=== PATIENT | female | born 1960 ===

== ENCOUNTER 2018-06-05 13:04 | Inpatient (IN) | payer BC ==
[2018-06-05] MEDS ORDERED: Albuterol/Ipratropium NEB.SOL* Albuterol 2.5 MG/Ipratropium 0.5 MG 3 ML INH PRN (17:51)
[2018-06-05] MEDS ORDERED: Senna TAB PO PRN (17:51)
[2018-06-05] MEDS ORDERED: Ondansetron INJ* 2 MG/ML VIAL IV PRN (17:51)
[2018-06-05] MEDS ORDERED: Acetaminophen TAB* 325 MG PO PRN (17:51)
[2018-06-05] MEDS ORDERED: Albuterol 2.5 MG/3 ML NEB.SOL* (0.083%) INH PRN (17:51)
[2018-06-05] MEDS ORDERED: HYDROcodone/ACETAMIN 5-325 MG* 1 TAB PO PRN (17:57)
[2018-06-05] MEDS ORDERED: GuaiFENesin DM sugar free* 5 ML UDC PO PRN (18:12)
[2018-06-05] MEDS ORDERED: Dextrose 50% Syringe 50 ML* 25 GM/50 ML SYRINGE IV PUSH PRN (18:12)
[2018-06-05] MEDS: Insulin LISPRO* 1 UNITS UNIT SUBCUT SCH (20:15)
[2018-06-05] MEDS: Famotidine TAB* 20 MG PO SCH (20:16)
[2018-06-05] MEDS: lamoTRIgine TAB(*) 25 MG PO SCH (20:16)
[2018-06-05] MEDS: Diclofenac Sodium EC TAB* 25 MG PO SCH (20:17)
[2018-06-05] MEDS: BuPROPion XL* 150 MG TAB.XL PO SCH (20:17)
[2018-06-05] MEDS: Heparin VIAL(*) 5000 UNITS/ML VIAL (FIVE THOUSAND) SUBCUT SCH (20:57)
--- NOTE | 2018-06-05 23:04 | HP ---
HISTORY AND PHYSICAL: DATE OF ADMISSION: 06/05/18 HISTORY OF PRESENT ILLNESS: This is a 57-year-old female, who was transferred to our facility from [facility] after she presented there with persistent cough for 3 weeks that failed outp atient therapy with amoxicillin and Levaquin. She was referred at the recommendation of her primary care provider and she presented to [facility]. She was admitted to [facility]. She was started on empiric antibiotic therapy with ceftriaxone and Zithromax. A CAT scan apparently which was done reveals positive bud formation in her CT, suggestive of fungal infection and hence tra nsfer was requested and accepted to our facility for possible evaluation with Infectious Disease and Pulmonary. The patient was seen, evaluated by me on the floor on arrival. She gives the history sta ting that about beginning of April, she started having some upper respiratory infection, ear infect ion. She got some thick congestions, from there progressed into her lower respiratory tract, for whi ch she was given outpatient therapy with amoxicillin for about a week. Her symptoms persisted and wo rsened and was given oral Levaquin for about 2 days without any improvement and hence referred to the ED. She also states that she was helping her daughter cleaning the basement, they came across sever al boxes that were contaminated with mice and feces and she thinks she might have inhaled some of tho se dusts, which are probably filled with molds. PAST MEDICAL HISTORY: 1. OCD. 2. IBS. 3. GERD. 4. Obstructive sleep apnea. 5. Diabetes mellitus. 6. Chronic headache. 7. Postmenopausal. MEDICATIONS: She is on: 1. Lamictal 50 mg twice a day. 2. Prozac 60 mg daily. 3. Wellbutrin 300 in the morning, 150 at night. 4. Calcium twice a day. 5. Multivitamin daily. 6. Vitamin D3 1000 units daily. 7. [place] 5/325 one to two tabs daily as needed. 8. Diclofenac 75 b.i.d. 9. Ranitidine 150 daily. 10. Saxenda 18 mcg/3 mL, supposed to be on 0.6 mg and titrated up to 2.5, but she has not been takin g it. Hence, she has been off it for several weeks. ALLERGIES: She is allergic to DILANTIN. FAMILY HISTORY: Mother diagnosed with diabetes, alive. Her father from [place]. SOCIAL HISTORY: She does not smoke. Occasional alcohol. She lives with her . REVIEW OF SYSTEMS: As per the HPI. Remaining otherwise negative. PHYSICAL EXAMINATION GENERAL: She is awake, pleasant. She was still the room as she just recently arrived. VITAL SIGNS: Temperature 98, pulse 79, respiratory rate 18, satting 98%, blood pressure 130/80. HEAD: Normocephalic, atraumatic. NECK: Supple. LUNGS: Coarse expiratory wheezing. No rales. CARDIOVASCULAR: S1, S2. Regular rate and rhythm. ABDOMEN: Positive bowel sounds. Soft, nontender, nondistended. EXTREMITIES: Pedal edema. Good peripheral pulse. CLINICAL TRIAL SPECIALIST: There is no motor, focal sensory deficit. DIAGNOSTIC STUDIES/LAB DATA: Her diagnostic from the outside facility reveals admission white count of 18,000 with hemoglobin 13, hematocrit 39, platelets 517. Her sodium was 137, potassium 3.8, CO2 o f 23, BUN 10, creatinine 1.1. D-dimer was negative. Influenza A and B were negative. Chest CT revealed tree-in-bud involving superior right lower lobe as well as left lower lobe about 0. 9 to 1.1 cm in the right upper lobe. IMPRESSION AND PLAN: This is a 57-year-old female. She just presented from [place] as a direct tra nsfer for secondary possible community-acquired pneumonia, complicated with finding suggestive of fun gal infection as revealed in her CT scan tree-in-bud formation. 1. Community-acquired pneumonia with possible fungal infection. At this time, we will admit her to the medicine service, continue her Rocephin and azithromycin. Infectious Disease was consulted over t he phone, recommended to continue empiric therapy, no antifungal therapy at the present time. I will put her on medicine service and we will consult with Pulmonary in the morning to see if she qualifie s for bronchoscopy versus repeating our imaging here. 2. For her history of seizure, continue her Lamictal 50 b.i.d. 3. For history of obsessive-compulsive disorder, she is on Prozac 60. I will continue, she is alrea dy on Wellbutrin 300 mg and 150 at night with a known history of seizure; however, she has not had an y seizures since she has been on Wellbutrin. I will not change her home medication, but that is somet jens that needs to be revisited as an outpatient with Wellbutrin that can lower the seizure threshold . 4. Chronic pain. Continue her [place] and diclofenac. 5. Diabetes mellitus. We will hold her Saxenda. We will put her on sliding scale with coverage for now. 6. DVT prophylaxis. Heparin 5000 q.8. 7. Code status. She is full code. [id number]/[id number] #: [id number]
[2018-06-06] MEDS: Heparin VIAL(*) 5000 UNITS/ML VIAL (FIVE THOUSAND) SUBCUT SCH ×3 (05:42→21:13)
[2018-06-06] MEDS: Azithromycin IV(*) 500 MG in NS 0.9% 250 ML* 250 ML IVPB SCH (09:00)
[2018-06-06] MEDS: Insulin LISPRO* 1 UNITS UNIT SUBCUT SCH ×4 (09:00→21:11)
[2018-06-06] MEDS ORDERED: NORETHINDRONE E ESTRADIOL IRON PO SCH (09:00)
[2018-06-06] MEDS: Famotidine TAB* 20 MG PO SCH ×2 (09:01→21:12)
[2018-06-06] MEDS: BuPROPion XL* 300 MG TAB.XL PO SCH (09:01)
[2018-06-06] MEDS: Diclofenac Sodium EC TAB* 25 MG PO SCH ×2 (09:01→21:12)
[2018-06-06] MEDS: lamoTRIgine TAB(*) 25 MG PO SCH ×2 (09:01→21:12)
[2018-06-06] MEDS: FLUoxetine CAP* 20 MG PO SCH (09:01)
[2018-06-06 10:06] LABS: ABS Basophils 0.1 10^3/ul (0-0.2); ABS Eosinophils 0 10^3/ul (0-0.6); ABS Lymphocytes 1.1 10^3/ul (1.0-4.8); ABS Monocytes 0.3 10^3/ul (0-0.8); ABS Neutrophils 17.6 10^3/ul (1.5-7.7); ABS Nucleated RBC 0 10^3/ul; Eosinophil % 0 % (0-6); Hematocrit 39 % (35-47); Hemoglobin 12.9 g/dl (12.0-16.0); Lymphocyte % 5.9 % (25-47); Mean Corpuscular HGB Conc 33 g/dl (31-36); Mean Corpuscular Hemoglobin 29 pg (27-31); Mean Corpuscular Volume 87 fL (80-97); Mean Platelet Volume 7.3 fL (7.4-10.4); Nucleated Red Blood Cells % 0; Platelet Count 500 10^3/ul (150-450); Red Blood Count 4.48 10^6/ul (4.00-5.40); Red Cell Distribution Width 13 % (10.5-15); White Blood Count 19.1 10^3/ul (3.5-10.8)
[2018-06-06 10:23] LABS: EGFR Non-African American 80.2 (>60)
[2018-06-06] MEDS: cefTRIAXone(*) 1 GM in NS 0.9% 50 ML* 50 ML IVPB SCH (14:11)
--- NOTE | 2018-06-06 15:26 | PN ---
Subjective Date of Service: 06/06/18 Interval History: doing better. no fever. WBC 19,000 but denies any fever or diarrhea. she did have nausea and vomited once after her IV antibiotics this morning but she tolerated lunch well. she is complaining of ear pain right worse than left. Past Medical History: Unchanged from Admission Objective Active Medications: Acetaminophen (Tylenol Tab*) 650 mg PO Q4H PRN PRN Reason: FEVER/PAIN Hydrocodone Bitart/Acetaminophen ([place] 5-325 Tab*) 1 tab PO Q6H PRN PRN Reason: PAIN Albuterol (Ventolin 2.5 Mg/3 Ml Neb.Bridget*) 2.5 mg INH Q2H PRN PRN Reason: sob/wheezing Albuterol/Ipratropium (Duoneb (Albuterol 2.5 Mg/Ipratropium 0.5 Mg)) 1 neb INH [id number] AWAKE PRN PRN Reason: sob/wheexing Bupropion HCl (Bupropion Xl*) 300 mg PO DAILY [facility]; Protocol Last Admin: 06/06/18 09:01 Dose: 300 mg Bupropion HCl (Wellbutrin Xl *) 150 mg PO BEDTIME [facility]; Protocol Last Admin: 06/05/18 20:17 Dose: 150 mg Dextrose (D50w Syringe 50 Ml*) 12.5 gm IV PUSH .FOR FS < 60 - SS PRN PRN Reason: FS < 60 Diclofenac Sodium (Voltaren Ec Tab*) 75 mg PO BID [facility] Last Admin: 06/06/18 09:01 Dose: 75 mg Famotidine (Pepcid Tab*) 20 mg PO BID [facility] Last Admin: 06/06/18 09:01 Dose: 20 mg Fluoxetine HCl (Prozac Cap*) 60 mg PO DAILY [facility] Last Admin: 06/06/18 09:01 Dose: 60 mg Guaifenesin/Dextromethorphan (Robitussin Dm Sugar Free*) 10 ml PO Q6H PRN PRN Reason: COUGH Heparin Sodium (Porcine) (Heparin Vial(*)) 5,000 units SUBCUT Q8HR [facility] Last Admin: 06/06/18 14:10 Dose: 5,000 units Ceftriaxone Sodium 1 gm/ (Sodium Chloride) 50 mls @ 200 mls/hr IVPB Q24H [facility] Last Admin: 06/06/18 14:11 Dose: 200 mls/hr Azithromycin 500 mg/ Sodium (Chloride) 250 mls @ 250 mls/hr IVPB Q24H [facility] Last Admin: 06/06/18 09:00 Dose: 250 mls/hr Insulin Human Lispro (Humalog*) 0 units SUBCUT ACHS [facility]; Protocol Last Admin: 06/06/18 12:38 Dose: 1 unit Lamotrigine (Lamictal Tab(*)) 25 mg PO BID [facility] Last Admin: 06/06/18 09:01 Dose: 25 mg Lubiprostone (Amitiza (Nf)) 24 mcg PO BID [facility] Last Admin: 06/06/18 09:00 Dose: 24 mcg Ondansetron HCl (Zofran Inj*) 4 mg IV Q4H PRN PRN Reason: NAUSEA/VOMITING Last Admin: 06/06/18 10:44 Dose: 4 mg Vital Signs - 8 hr 06/06/18 06/06/18 06/06/18 07:50 08:00 08:33 Temperature 97.7 F Pulse Rate 75 Respiratory 16 16 Rate Blood Pressure 132/78 127/97 (mmHg) O2 Sat by Pulse 97 Oximetry 06/06/18 12:49 Temperature 98.3 F Pulse Rate 88 Respiratory 16 Rate Blood Pressure 117/82 (mmHg) O2 Sat by Pulse 95 Oximetry Oxygen Devices in Use Now: None Appearance: no acute distress Eyes: No Scleral Icterus, PERRLA Ears/Nose/Mouth/Throat: NL Teeth, Lips, Gums, Mucous Membranes Moist Neck: NL Appearance and Movements; NL JVP Respiratory: Symmetrical Chest Expansion and Respiratory Effort, Clear to Auscultation Cardiovascular: NL Sounds; No Murmurs; No JVD, RRR, No Edema Abdominal: NL Sounds; No Tenderness; No Distention Lymphatic: No Cervical Adenopathy Extremities: No Edema Skin: No Rash or Ulcers Neurological: Alert and Oriented x 3 Result Diagrams: 06/06/18 09:14 06/06/18 09:14 Assess/Plan/Problems-Billing Assessment: 57 y/o female transferred from [facility] secondary to Community acquired pneumonia that failed 2 course of outpatient therapy and her CT Scan revealed tree in bud opacities involving the superior right lower lobe and as well the superior left lower lobe regions - Patient Problems (1) Community acquired pneumonia Current Visit: Yes Status: Acute Code(s): J18.9 - PNEUMONIA, UNSPECIFIED ORGANISM SNOMED Code(s): 090105751 Comment: - Failed outpatient course of amoxicillin and levaquin - She was transferred from [facility] due to tree in bud opacities involving the superior right lower lobe and as well the superior left lower lobe regions on CT scan in [facility] - ID and pulmonary consult - I will miaintain her on Rocephin and zithromax and recheck labs in am - Repeat CXR done yesterday on admission did not shows any significant consolidations - She does not have history if being immunocompromized. and Despite her leukocytosis she does appear extremely good and no fever. (2) OCD (obsessive compulsive disorder) Current Visit: Yes Status: Chronic Code(s): F42.9 - OBSESSIVE-COMPULSIVE DISORDER, UNSPECIFIED SNOMED Code(s): 933639066 Comment: - continue prozac 60 mg daily and wellbutrin 300 mg am 150 mg pm (3) Seizure Current Visit: Yes Status: Chronic Code(s): R56.9 - UNSPECIFIED CONVULSIONS SNOMED Code(s): 44249045 Comment: - continue her lamictal - although she has seizure patient state she has not had any seizure despite being on wellbutrin (4) IBS (irritable bowel syndrome) Current Visit: Yes Status: Chronic Comment: - Continue home medication of amitizia (5) GERD (gastroesophageal reflux disease) Current Visit: Yes Status: Acute Code(s): K21.9 - GASTRO-ESOPHAGEAL REFLUX DISEASE WITHOUT ESOPHAGITIS SNOMED Code(s): 540468564 Comment: - continue home dose of famotidine (6) Diabetes Current Visit: Yes Status: Chronic Code(s): E11.9 - TYPE 2 DIABETES MELLITUS WITHOUT COMPLICATIONS SNOMED Code(s): 38012155 Comment: - on sliding scale - Change diet to low carb diet (7) Postmenopausal Current Visit: Yes Status: Chronic Comment: - Continue home med of microgestin (8) DVT prophylaxis Current Visit: Yes Status: Acute Code(s): ZGA7521 - SNOMED Code(s): 655861271 Comment: - Heparin 5000 SQ Q 8rs
[2018-06-06] MEDS: BuPROPion XL* 150 MG TAB.XL PO SCH (21:13)
[2018-06-07 05:28] LABS: ABS Basophils 0 10^3/ul (0-0.2); ABS Eosinophils 0 10^3/ul (0-0.6); ABS Lymphocytes 3.5 10^3/ul (1.0-4.8); ABS Monocytes 0.8 10^3/ul (0-0.8); ABS Neutrophils 13.8 10^3/ul (1.5-7.7); ABS Nucleated RBC 0 10^3/ul; Eosinophil % 0.1 % (0-6); Hematocrit 36 % (35-47); Hemoglobin 12.2 g/dl (12.0-16.0); Lymphocyte % 19.5 % (25-47); Mean Corpuscular HGB Conc 34 g/dl (31-36); Mean Corpuscular Hemoglobin 29 pg (27-31); Mean Corpuscular Volume 87 fL (80-97); Mean Platelet Volume 6.5 fL (7.4-10.4); Nucleated Red Blood Cells % 0; Platelet Count 441 10^3/ul (150-450); Red Blood Count 4.16 10^6/ul (4.00-5.40); Red Cell Distribution Width 13 % (10.5-15); White Blood Count 18.2 10^3/ul (3.5-10.8)
[2018-06-07 05:51] LABS: EGFR Non-African American 69.4 (>60)
[2018-06-07] MEDS: Heparin VIAL(*) 5000 UNITS/ML VIAL (FIVE THOUSAND) SUBCUT SCH ×3 (06:08→23:00)
[2018-06-07] MEDS: Insulin LISPRO* 1 UNITS UNIT SUBCUT SCH ×4 (08:18→21:12)
[2018-06-07] MEDS: Diclofenac Sodium EC TAB* 25 MG PO SCH ×2 (09:27→22:59)
[2018-06-07] MEDS: Azithromycin IV(*) 500 MG in NS 0.9% 250 ML* 250 ML IVPB SCH (09:27)
[2018-06-07] MEDS: BuPROPion XL* 300 MG TAB.XL PO SCH (09:27)
[2018-06-07] MEDS: FLUoxetine CAP* 20 MG PO SCH (09:28)
[2018-06-07] MEDS: Famotidine TAB* 20 MG PO SCH ×2 (09:28→22:58)
[2018-06-07] MEDS: lamoTRIgine TAB(*) 25 MG PO SCH ×2 (09:28→22:58)
[2018-06-07] MEDS: cefTRIAXone(*) 1 GM in NS 0.9% 50 ML* 50 ML IVPB SCH (14:13)
--- NOTE | 2018-06-07 16:37 | PN ---
Subjective Date of Service: 06/07/18 Interval History: she feels fatigue, but no fever or chills. positive BM. Pulmonary input appreciated Past Medical History: Unchanged from Admission Objective Active Medications: Acetaminophen (Tylenol Tab*) 650 mg PO Q4H PRN PRN Reason: FEVER/PAIN Hydrocodone Bitart/Acetaminophen ([place] 5-325 Tab*) 1 tab PO Q6H PRN PRN Reason: PAIN Albuterol (Ventolin 2.5 Mg/3 Ml Neb.Bridget*) 2.5 mg INH Q2H PRN PRN Reason: sob/wheezing Albuterol/Ipratropium (Duoneb (Albuterol 2.5 Mg/Ipratropium 0.5 Mg)) 1 neb INH [id number] AWAKE PRN PRN Reason: sob/wheexing Bupropion HCl (Bupropion Xl*) 300 mg PO DAILY [facility]; Protocol Last Admin: 06/07/18 09:27 Dose: 300 mg Bupropion HCl (Wellbutrin Xl *) 150 mg PO BEDTIME [facility]; Protocol Last Admin: 06/06/18 21:13 Dose: 150 mg Dextrose (D50w Syringe 50 Ml*) 12.5 gm IV PUSH .FOR FS < 60 - SS PRN PRN Reason: FS < 60 Diclofenac Sodium (Voltaren Ec Tab*) 75 mg PO BID [facility] Last Admin: 06/07/18 09:27 Dose: 75 mg Famotidine (Pepcid Tab*) 20 mg PO BID [facility] Last Admin: 06/07/18 09:28 Dose: 20 mg Fluoxetine HCl (Prozac Cap*) 60 mg PO DAILY [facility] Last Admin: 06/07/18 09:28 Dose: 60 mg Guaifenesin/Dextromethorphan (Robitussin Dm Sugar Free*) 10 ml PO Q6H PRN PRN Reason: COUGH Heparin Sodium (Porcine) (Heparin Vial(*)) 5,000 units SUBCUT Q8HR [facility] Last Admin: 06/07/18 14:13 Dose: 5,000 units Ceftriaxone Sodium 1 gm/ (Sodium Chloride) 50 mls @ 200 mls/hr IVPB Q24H [facility] Last Admin: 06/07/18 14:13 Dose: 200 mls/hr Azithromycin 500 mg/ Sodium (Chloride) 250 mls @ 250 mls/hr IVPB Q24H [facility] Last Admin: 06/07/18 09:27 Dose: 250 mls/hr Insulin Human Lispro (Humalog*) 0 units SUBCUT ACHS [facility]; Protocol Last Admin: 06/07/18 12:54 Dose: Not Given Lamotrigine (Lamictal Tab(*)) 25 mg PO BID [facility] Last Admin: 06/07/18 09:28 Dose: 25 mg Lubiprostone (Amitiza (Nf)) 24 mcg PO BID [facility] Last Admin: 06/07/18 09:27 Dose: 24 mcg Ondansetron HCl (Zofran Inj*) 4 mg IV Q4H PRN PRN Reason: NAUSEA/VOMITING Last Admin: 06/06/18 10:44 Dose: 4 mg Vital Signs - 8 hr 06/07/18 06/07/18 11:08 15:39 Temperature 98.1 F 97.5 F Pulse Rate 63 83 Respiratory 18 18 Rate Blood Pressure 135/73 119/85 (mmHg) O2 Sat by Pulse 100 98 Oximetry Oxygen Devices in Use Now: None Appearance: Awake, alert Eyes: No Scleral Icterus Ears/Nose/Mouth/Throat: NL Teeth, Lips, Gums Neck: NL Appearance and Movements; NL JVP, Trachea Midline Respiratory: Symmetrical Chest Expansion and Respiratory Effort, - - expiratory wheezing Cardiovascular: NL Sounds; No Murmurs; No JVD Abdominal: NL Sounds; No Tenderness; No Distention Extremities: No Edema Result Diagrams: 06/07/18 05:08 06/07/18 05:08 Microbiology and Other Data: Microbiology 06/06/18 14:00 Gram Stain - Final Sputum Expectorated Assess/Plan/Problems-Billing Assessment: 57 y/o female transferred from [facility] secondary to Community acquired pneumonia that failed 2 course of outpatient therapy and her CT Scan revealed tree in bud opacities involving the superior right lower lobe and as well the superior left lower lobe regions - Patient Problems (1) Community acquired pneumonia Current Visit: Yes Status: Acute Code(s): J18.9 - PNEUMONIA, UNSPECIFIED ORGANISM SNOMED Code(s): 496421718 Comment: - Failed outpatient course of amoxicillin and levaquin - She was transferred from [facility] due to tree in bud opacities involving the superior right lower lobe and as well the superior left lower lobe regions on CT scan in [facility] - ID consult pending and pulmonary consult appreciated. Cleared for D/c by pulmonary - I will miaintain her on Rocephin and zithromax and recheck cbc in am - Repeat CXR done yesterday on admission did not shows any significant consolidations - She does not have history if being immunocompromized. and Despite her leukocytosis she does appear extremely good and no fever. - Check RSV virus (2) OCD (obsessive compulsive disorder) Current Visit: Yes Status: Chronic Code(s): F42.9 - OBSESSIVE-COMPULSIVE DISORDER, UNSPECIFIED SNOMED Code(s): 718214532 Comment: - continue prozac 60 mg daily and wellbutrin 300 mg am 150 mg pm (3) Seizure Current Visit: Yes Status: Chronic Code(s): R56.9 - UNSPECIFIED CONVULSIONS SNOMED Code(s): 82980359 Comment: - continue her lamictal - although she has seizure patient state she has not had any seizure despite being on wellbutrin (4) IBS (irritable bowel syndrome) Current Visit: Yes Status: Chronic Comment: - Continue home medication of amitizia (5) GERD (gastroesophageal reflux disease) Current Visit: Yes Status: Acute Code(s): K21.9 - GASTRO-ESOPHAGEAL REFLUX DISEASE WITHOUT ESOPHAGITIS SNOMED Code(s): 507146362 Comment: - continue home dose of famotidine (6) Diabetes Current Visit: Yes Status: Chronic Code(s): E11.9 - TYPE 2 DIABETES MELLITUS WITHOUT COMPLICATIONS SNOMED Code(s): 60042817 Comment: - on sliding scale - Change diet to low carb diet (7) Postmenopausal Current Visit: Yes Status: Chronic Comment: - Continue home med of microgestin (8) DVT prophylaxis Current Visit: Yes Status: Acute Code(s): CUR4789 - SNOMED Code(s): 594653983 Comment: - Heparin 5000 SQ Q 8rs
[2018-06-07] MEDS: BuPROPion XL* 150 MG TAB.XL PO SCH (22:59)
--- NOTE | 2018-06-08 00:05 | CONS ---
PULMONARY CONSULTATION REPORT: DATE OF CONSULT: 06/07/18. CONSULTATION REQUESTED BY: Dr. Tom Hunter. REASON FOR CONSULT: Evaluation of pneumonia, abnormal CT. HISTORY OF PRESENT ILLNESS: The patient is a 57-year-old female, former smoker , quit recently with a history of OCD, GERD, sleep apnea, diabetes, chronic headache, who was transferred from [facility] for evaluation of abnormal CT chest. The patient has been having URI symptoms recently. She recently was exposed to mice feces when she was working in basement. She immediately started having flu- like symptoms, wheeze, cough, shortness of breath. The patient saw her primary care physician, who treated her with amoxicillin and changed to Levaquin. Given no improvement, she was sent to the emergency room for further evaluation. She was further evaluated with chest x-ray and CT scan of the chest. I have personally reviewed CT of the chest results from the PACS. The patient noted to have airspace opacities with tree-in-bud appearance involving right lower lobe and left lower lobe. The patient also known to have 0.9 x 1.1 cm nodular opacity in the left lower lobe. The patient is comfortable on room air. The patient reports that she started to feel better. She is not having any other symptoms at this time other than fatigue. She is not using accessory muscles of respiration. Denies chest pain, palpitations, dizziness, loss of weight or appetite. Her daughter also had similar symptoms recently around the same time. The patient was initiated on Rocephin and Zithromax. She also has been receiving nebulizers. The patient was also initiated on GERD therapy. She is hemodynamically stable. She does have elevated white count. No electrolyte abnormalities are noted. PAST MEDICAL HISTORY: 1. OCD. 2. IBS. 3. GERD. 4. Obstructive sleep apnea. 5. Diabetes. 6. Chronic headache. 7. Postmenopausal status. 8. Prior smoking history. MEDICATIONS: 1. Lamictal. 2. Prozac. 3. Wellbutrin. 4. Calcium. 5. Multivitamin. 6. Vitamin D3. 7. [place]. 8. Diclofenac. 9. Ranitidine. 10. Saxenda. She has been off of it for several weeks. ALLERGIES: DILANTIN. FAMILY HISTORY: Mother with diabetes. Father with [place]. SOCIAL HISTORY: Does not smoke. Occasional alcohol intake. Lives at home with her who is at bedside today. REVIEW OF SYSTEMS: All 14 systems reviewed and as per HPI. PHYSICAL EXAM: The patient in bed, in no apparent distress. Vital signs: Temperature 97.7, pulse 58 beats per minute, respiratory rate 18 per minute, O2 sat 94% to 99% on room air, blood pressure 144/88. HEENT: Pupils equal, reactive to light. Mucous membranes moist. Lungs: Coarse breath sounds bilaterally and wheeze and no rales. Cardiovascular: S1, S2 present, regular. Abdomen: Soft, bowel sounds present, nontender. Extremities: Trace edema, normal range of motion. Nervous system: No focal deficits. Skin: No rash or bruise. DIAGNOSTIC STUDIES/LAB DATA: WBC count 18.2, hemoglobin 12.2, hematocrit 36, platelet count 441. INR 2.0. Blood gas analysis as described with respiratory alkalosis. Electrolytes, no abnormality seen. BNP is slightly with neutrophilia. Sodium 140, potassium 3.9, chloride 105, bicarb 28, BUN 20, creatinine 0.85. Chest x-ray done on admission on 06/05/18 to [facility] was reviewed by me. No significant airspace opacities were noted. CT of the chest done at outside facility was reviewed and as per HPI. IMPRESSION AND RECOMMENDATION: A 57-year-old female, former smoker, quit recently, transferred from outside facility for evaluation of possible fungal pneumonia. She recently was treated as outpatient with antibiotics for three to four days before hospitalization. She was hospitalized briefly for one day and was transferred for evaluation of possible fungal pneumonia. The patient's CT scan showed evidence of airspace opacity and nodular opacity in the left lower lobe. The patient's symptoms started after she was working with cleaning stuff in her basement which involved mice feces. Her daughter also had similar symptoms mostly with dry cough. 1. Acute bronchitis. 2. Community-acquired pneumonia. 3. CT chest abnormalities suggestive of possible bronchiolitis. 4. Nodular opacity on CT chest, need to be followed up with CT chest in 2 months. The patient also with mild emphysematous changes on CT chest. The patient is stable at this time. She has underlying anxiety disorder and having issues due to that, otherwise in no apparent distress. She is on room air and not in any significant respiratory distress. She does have some rhonchi on auscultation and would benefit from nebulizer treatments. Can hold off on steroids at this time. Do not suspect fungal pneumonia. She does not have any risk factors for fungal pneumonia. 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 Do not suspect tuberculosis at this time. She might be having some reactive airways component. Given nodular opacity in left lower lobe, she will need followup CT scan to ensure resolution in 4-6 weeks. Thank you for allowing me to participate in the care of your patient. Will follow up with you. She will follow up with me in [facility] in July. Will obtain alpha-1 testing given evidence of emphysematous changes. Will follow up with repeat CT chest at [place] in July 2018. [id number]/[facility] #: [id number] ROSS
[2018-06-08 06:01] LABS: ABS Basophils 0 10^3/ul (0-0.2); ABS Eosinophils 0.1 10^3/ul (0-0.6); ABS Lymphocytes 4.6 10^3/ul (1.0-4.8); ABS Monocytes 0.7 10^3/ul (0-0.8); ABS Neutrophils 5.2 10^3/ul (1.5-7.7); ABS Nucleated RBC 0 10^3/ul; Eosinophil % 0.9 % (0-6); Hematocrit 37 % (35-47); Hemoglobin 12.4 g/dl (12.0-16.0); Lymphocyte % 42.8 % (25-47); Mean Corpuscular HGB Conc 34 g/dl (31-36); Mean Corpuscular Hemoglobin 29 pg (27-31); Mean Corpuscular Volume 87 fL (80-97); Mean Platelet Volume 6.6 fL (7.4-10.4); Nucleated Red Blood Cells % 0.2; Platelet Count 411 10^3/ul (150-450); Red Blood Count 4.23 10^6/ul (4.00-5.40); Red Cell Distribution Width 13 % (10.5-15); White Blood Count 10.7 10^3/ul (3.5-10.8)
[2018-06-08] MEDS: Heparin VIAL(*) 5000 UNITS/ML VIAL (FIVE THOUSAND) SUBCUT SCH ×2 (06:03→14:39)
[2018-06-08] MEDS: Insulin LISPRO* 1 UNITS UNIT SUBCUT SCH ×2 (08:59→12:26)
[2018-06-08] MEDS: Azithromycin IV(*) 500 MG in NS 0.9% 250 ML* 250 ML IVPB SCH (09:07)
[2018-06-08] MEDS: FLUoxetine CAP* 20 MG PO SCH (09:14)
[2018-06-08] MEDS: lamoTRIgine TAB(*) 25 MG PO SCH (09:14)
[2018-06-08] MEDS: Famotidine TAB* 20 MG PO SCH (09:14)
[2018-06-08] MEDS: BuPROPion XL* 300 MG TAB.XL PO SCH (09:14)
[2018-06-08] MEDS: Diclofenac Sodium EC TAB* 25 MG PO SCH (09:14)
[2018-06-08 11:02] VITALS: BP 114/62
--- NOTE | 2018-06-08 12:11 | PN ---
Progress Note - Progress Note Date of Service: 06/08/18 - Pulm f/u note Note: Pt seen and examined at bedside, pt denies signficant SOB. No acute events o/n. ROS: Denies cough, chest pain, urinary complaints, abd pain, N, headaches, rash Active Medications Generic Name Dose Route Start Last Admin Trade Name Freq PRN Reason Stop Dose Admin Acetaminophen 650 mg 06/05/18 17:51 Tylenol Tab* PO Q4H PRN FEVER/PAIN Hydrocodone Bitart/Acetaminophen 1 tab 06/05/18 17:57 [place] 5-325 Tab* PO Q6H PRN PAIN Albuterol 2.5 mg 06/05/18 17:51 Ventolin 2.5 Mg/3 Ml Neb.Bridget* INH Q2H PRN sob/wheezing Albuterol/Ipratropium 1 neb 06/05/18 17:51 Duoneb (Albuterol 2.5 Mg/Ipratropium 0.5 Mg) INH [id number] AWAKE PRN sob/wheexing Bupropion HCl 300 mg 06/06/18 09:00 06/08/18 09:14 Bupropion Xl* PO 300 mg DAILY SHANTANU Administration Protocol Bupropion HCl 150 mg 06/05/18 21:00 06/07/18 22:59 Wellbutrin Xl * PO 150 mg BEDTIME SHANTANU Administration Protocol Dextrose 12.5 gm 06/05/18 18:12 D50w Syringe 50 Ml* IV PUSH .FOR FS < 60 - SS PRN FS < 60 Diclofenac Sodium 75 mg 06/05/18 21:00 06/08/18 09:14 Voltaren Ec Tab* PO 75 mg BID SHANTANU Administration Famotidine 20 mg 06/05/18 21:00 06/08/18 09:14 Pepcid Tab* PO 20 mg BID SHANTANU Administration Fluoxetine HCl 60 mg 06/06/18 09:00 06/08/18 09:14 Prozac Cap* PO 60 mg DAILY SHANTANU Administration Guaifenesin/Dextromethorphan 10 ml 06/05/18 18:12 Robitussin Dm Sugar Free* PO Q6H PRN COUGH Heparin Sodium (Porcine) 5,000 units 06/05/18 22:00 06/08/18 06:03 Heparin Vial(*) SUBCUT 5,000 units Q8HR SHATNANU Administration Ceftriaxone Sodium 1 gm/ 50 mls @ 200 mls/hr 06/06/18 14:00 06/07/18 14:13 Sodium Chloride IVPB 200 mls/hr Q24H SHANTANU Administration Azithromycin 500 mg/ Sodium 250 mls @ 250 mls/hr 06/06/18 09:00 06/08/18 09: 07 Chloride IVPB 250 mls/hr Q24H SHANTANU Administration Insulin Human Lispro 0 units 06/05/18 21:00 06/08/18 08:59 Humalog* SUBCUT Not Given [facility] Protocol Lamotrigine 25 mg 06/05/18 21:00 06/08/18 09:14 Lamictal Tab(*) PO 25 mg BID SHANTANU Administration Lubiprostone 24 mcg 06/05/18 21:00 06/08/18 09:15 Amitiza (Nf) PO 24 mcg BID SHANTANU Administration Ondansetron HCl 4 mg 06/05/18 17:51 06/06/18 10:44 Zofran Inj* IV 4 mg Q4H PRN Administration NAUSEA/VOMITING Vital Signs Temp Pulse Resp BP Pulse Ox 98.3 F 78 18 114/62 99 06/08/18 10:35 06/08/18 10:35 06/08/18 11:08 06/08/18 10:35 06/08/18 10:35 O/E: Pt in NAD HEENT: PERRLA, NO JVD Lungs: Scaterred wheeze+ CVS: S1, S2+, regular Abd; Soft, BS+ Ext: Normal ROM Skin: NO rash Neuro: No focal deficits Laboratory Results - last 24 hr 06/07/18 06/07/18 06/07/18 12:15 17:26 19:59 WBC RBC Hgb Hct MCV MCH MCHC RDW Plt Count MPV Neut % (Auto) Lymph % (Auto) Humphreys % (Auto) Eos % (Auto) Baso % (Auto) Absolute Neuts (auto) Absolute Lymphs (auto) Absolute Monos (auto) Absolute Eos (auto) Absolute Basos (auto) Absolute Nucleated RBC Nucleated RBC % POC Glucose (mg/dL) 93 111 H Influenza A (Rapid) Negative Influenza B (Rapid) Negative RSV Rapid 06/07/18 06/07/18 06/08/18 20:00 20:25 05:40 WBC 10.7 RBC 4.23 Hgb 12.4 Hct 37 MCV 87 MCH 29 MCHC 34 RDW 13 Plt Count 411 MPV 6.6 L Neut % (Auto) 49.3 Lymph % (Auto) 42.8 Humphreys % (Auto) 6.6 Eos % (Auto) 0.9 Baso % (Auto) 0.4 Absolute Neuts (auto) 5.2 Absolute Lymphs (auto) 4.6 Absolute Monos (auto) 0.7 Absolute Eos (auto) 0.1 Absolute Basos (auto) 0 Absolute Nucleated RBC 0 Nucleated RBC % 0.2 POC Glucose (mg/dL) 92 Influenza A (Rapid) Influenza B (Rapid) RSV Rapid Negative 06/08/18 08:34 WBC RBC Hgb Hct MCV MCH MCHC RDW Plt Count MPV Neut % (Auto) Lymph % (Auto) Humphreys % (Auto) Eos % (Auto) Baso % (Auto) Absolute Neuts (auto) Absolute Lymphs (auto) Absolute Monos (auto) Absolute Eos (auto) Absolute Basos (auto) Absolute Nucleated RBC Nucleated RBC % POC Glucose (mg/dL) 85 Influenza A (Rapid) Influenza B (Rapid) RSV Rapid I/R: 57 y o f smoker with h/o OCD, anxiety/depression, chronic pain with recent URI sx that started after exposure to mice feces, was treated with abx as out pt , admitted to [facility] for worsening sx with concern for PNA. Pt was transferred for evaluation of possible fungal PNA Pt had CT chest at [facility], images were personally reviewed and with pt- Evidence of patchy air space opacities with tree-in-bud appearance and nodular opacity in LL No evidence of cavitation Findings are suggestive of possible broncholitis- could be viral or bacterial etiology She is not immunosupressed or does not have risk factors for fungal PNA She works in [employer], has PPD`s regularly that are negative She does have mild emphysema on CT chest Alpha-1 testing was obtained c/w abx for CAP She will need PFTs, rpt CT chest in 4-6 weeks for f/u on resolution of changes and nodular opacity on CT chest
--- NOTE | 2018-06-08 13:15 | CONS ---
CONSULTATION REPORT: DATE OF CONSULT: 06/08/18 REQUESTING PHYSICIAN: Dr. Hunter. CONSULTING SERVICE: Infectious Disease. REASON FOR CONSULT: Pneumonia. IMPRESSION: 1. Cough, malaise. Chest CT that showed a nodular density, opacification, taking together she has community-acquired pneumonia. She had some exposure to mouse droppings, which I do not think explains her illness. She is much improved on ceftriaxone and azithromycin. 2. Obsessive-compulsive disorder. 3. Obstructive sleep apnea. 4. Chronic obstructive pulmonary disease. RECOMMENDATIONS: She has had 3 days of IV antibiotics. We can switch her to cephalosporin and azithromycin to complete a 7-day course. We will follow up chest imaging as guided by Dr. Choudhury. HISTORY OF PRESENT ILLNESS: This is a 57-year-old woman, admitted to pneumonia. She was well until early April, developed an ear infection, then subsequently a couple of days later developed a cough, which persisted for 2 or 3 weeks and then became sort of productive. She had worsening malaise and decreased energy. She was seen at [facility]. A CT scan showed left lower lobe nodular opacification and she was transferred here because of a concern for fungal pneumonia. She has been afebrile here. She has had a dose of ceftriaxone, azithro that started at [facility] on the 06/05/18 and is continued. Her cough is much better today. She has had no fevers, chills, or sweats. Her energy has a little bit improved. Her appetite is good. She has not had an infection requiring hospitalization in the past. She has not had pneumonia before. Her influenza and RSV, PCR here were negative. White count was 19,000 on admission, is down to 10,000 today. PAST MEDICAL HISTORY: 1. Obstructive sleep apnea. 2. Chronic obstructive pulmonary disease. 3. Obsessive-compulsive disorder. 4. Bipolar disorder. 5. Irritable bowel syndrome. 6. Diabetes mellitus. 7. Chronic headache. 8. Postmenopausal. MEDICATIONS: 1. Tylenol. 2. Albuterol. 3. Bupropion. 4. Diclofenac. 5. Famotidine. 6. Fluoxetine. 7. Guaifenesin. 8. Heparin subcutaneous injection. 9. Lamictal. 10. Ceftriaxone 1 g a day. 11. Azithromycin 500 mg daily. ALLERGIES: DILANTIN. FAMILY HISTORY: No recurrent infections. No tuberculosis. 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 Does not have exposure to inmates. She has no travel or sick contacts. REVIEW OF SYSTEMS: All negative except as noted above to a 14-point review of systems. PHYSICAL EXAM: Vital Signs: Temperature 36, heart rate 60, respiratory rate 17 , blood pressure 112/60, oxygen saturation 95% on room air. General: She is awake, not in distress. Neurologic: She is oriented x3, follows all commands. Moves all extremities. HEENT: There is no conjunctival hemorrhage. Oropharynx without lesions. Neck: Supple without mass. Heart: Regular, rate , and rhythm without murmurs, rubs, or gallops. Lungs are clear to auscultation bilaterally. Abdomen: Soft, nontender, and nondistended. There is bowel sounds present. Skin: There is no rash or splinter hemorrhage. Musculoskeletal: There is no spinal tenderness to palpation. LABORATORY DATA: White blood cell count 10, hemoglobin 12, platelets 411. Creatinine 0.8. Please see impressions and recommendations outlined above. Thanks for asking me to see Ms. Bruce in consultation. [id number]/[facility] #: [id number] ROSS
--- NOTE | 2018-06-08 14:03 | PN ---
Subjective Date of Service: 06/08/18 Interval History: Feeling better. ID and Pulmonary consult noted appreciated. Cleared for discharge home by both services. no acute events. Past Medical History: Unchanged from Admission Objective Active Medications: Acetaminophen (Tylenol Tab*) 650 mg PO Q4H PRN PRN Reason: FEVER/PAIN Hydrocodone Bitart/Acetaminophen ([place] 5-325 Tab*) 1 tab PO Q6H PRN PRN Reason: PAIN Albuterol (Ventolin 2.5 Mg/3 Ml Neb.Bridget*) 2.5 mg INH Q2H PRN PRN Reason: sob/wheezing Albuterol/Ipratropium (Duoneb (Albuterol 2.5 Mg/Ipratropium 0.5 Mg)) 1 neb INH [id number] AWAKE PRN PRN Reason: sob/wheexing Bupropion HCl (Bupropion Xl*) 300 mg PO DAILY [facility]; Protocol Last Admin: 06/08/18 09:14 Dose: 300 mg Bupropion HCl (Wellbutrin Xl *) 150 mg PO BEDTIME [facility]; Protocol Last Admin: 06/07/18 22:59 Dose: 150 mg Dextrose (D50w Syringe 50 Ml*) 12.5 gm IV PUSH .FOR FS < 60 - SS PRN PRN Reason: FS < 60 Diclofenac Sodium (Voltaren Ec Tab*) 75 mg PO BID [facility] Last Admin: 06/08/18 09:14 Dose: 75 mg Famotidine (Pepcid Tab*) 20 mg PO BID [facility] Last Admin: 06/08/18 09:14 Dose: 20 mg Fluoxetine HCl (Prozac Cap*) 60 mg PO DAILY [facility] Last Admin: 06/08/18 09:14 Dose: 60 mg Guaifenesin/Dextromethorphan (Robitussin Dm Sugar Free*) 10 ml PO Q6H PRN PRN Reason: COUGH Heparin Sodium (Porcine) (Heparin Vial(*)) 5,000 units SUBCUT Q8HR [facility] Last Admin: 06/08/18 06:03 Dose: 5,000 units Ceftriaxone Sodium 1 gm/ (Sodium Chloride) 50 mls @ 200 mls/hr IVPB Q24H [facility] Last Admin: 06/07/18 14:13 Dose: 200 mls/hr Azithromycin 500 mg/ Sodium (Chloride) 250 mls @ 250 mls/hr IVPB Q24H [facility] Last Admin: 06/08/18 09:07 Dose: 250 mls/hr Insulin Human Lispro (Humalog*) 0 units SUBCUT ACHS [facility]; Protocol Last Admin: 06/08/18 12:26 Dose: Not Given Lamotrigine (Lamictal Tab(*)) 25 mg PO BID [facility] Last Admin: 06/08/18 09:14 Dose: 25 mg Lubiprostone (Amitiza (Nf)) 24 mcg PO BID [facility] Last Admin: 06/08/18 09:15 Dose: 24 mcg Ondansetron HCl (Zofran Inj*) 4 mg IV Q4H PRN PRN Reason: NAUSEA/VOMITING Last Admin: 06/06/18 10:44 Dose: 4 mg Vital Signs - 8 hr 06/08/18 06/08/18 06/08/18 06:50 10:35 11:08 Temperature 97.1 F 98.3 F Pulse Rate 113 78 Respiratory 17 18 16 Rate Blood Pressure 112/60 114/62 (mmHg) O2 Sat by Pulse 95 99 Oximetry Oxygen Devices in Use Now: None Appearance: no acute distress. on room air. Eyes: No Scleral Icterus, PERRLA Ears/Nose/Mouth/Throat: NL Teeth, Lips, Gums, Mucous Membranes Moist Neck: NL Appearance and Movements; NL JVP, Trachea Midline Respiratory: Symmetrical Chest Expansion and Respiratory Effort, Clear to Auscultation Cardiovascular: NL Sounds; No Murmurs; No JVD, RRR Abdominal: NL Sounds; No Tenderness; No Distention Extremities: No Edema, No Clubbing, Cyanosis Skin: No Rash or Ulcers Neurological: Alert and Oriented x 3 Result Diagrams: 06/08/18 05:40 06/07/18 05:08 Microbiology and Other Data: Microbiology 06/06/18 14:00 Gram Stain - Final Sputum Expectorated Assess/Plan/Problems-Billing Assessment: 57 y/o female transferred from [facility] secondary to Community acquired pneumonia that failed 2 course of outpatient therapy and her CT Scan revealed tree in bud opacities involving the superior right lower lobe and as well the superior left lower lobe regions - Patient Problems (1) Community acquired pneumonia Current Visit: Yes Status: Acute Code(s): J18.9 - PNEUMONIA, UNSPECIFIED ORGANISM SNOMED Code(s): 663599905 Comment: - Failed outpatient course of amoxicillin and levaquin - She was transferred from [facility] due to tree in bud opacities involving the superior right lower lobe and as well the superior left lower lobe regions on CT scan in [facility] - ID consult today 06/08/18 appreciated. cleared to be d/c home on oral abx and did not have any concerns for fungal infections. Pulmonary consult appreciated. Cleared for D/c by pulmonary - I will d/c her on vantin 200 mg bid for 7 more days along with zithromax for 2 more days - RSV virus negative - follow up with Dr. Calvo for outpatient follow up for her CT finding (2) OCD (obsessive compulsive disorder) Current Visit: Yes Status: Chronic Code(s): F42.9 - OBSESSIVE-COMPULSIVE DISORDER, UNSPECIFIED SNOMED Code(s): 863626255 Comment: - continue prozac 60 mg daily and wellbutrin 300 mg am 150 mg pm (3) Seizure Current Visit: Yes Status: Chronic Code(s): R56.9 - UNSPECIFIED CONVULSIONS SNOMED Code(s): 26369697 Comment: - continue her lamictal - although she has seizure patient state she has not had any seizure despite being on wellbutrin (4) IBS (irritable bowel syndrome) Current Visit: Yes Status: Chronic Comment: - Continue home medication of amitizia (5) GERD (gastroesophageal reflux disease) Current Visit: Yes Status: Acute Code(s): K21.9 - GASTRO-ESOPHAGEAL REFLUX DISEASE WITHOUT ESOPHAGITIS SNOMED Code(s): 094497351 Comment: - continue home dose of famotidine (6) Diabetes Current Visit: Yes Status: Chronic Code(s): E11.9 - TYPE 2 DIABETES MELLITUS WITHOUT COMPLICATIONS SNOMED Code(s): 25730878 Comment: - on sliding scale - Change diet to low carb diet (7) Postmenopausal Current Visit: Yes Status: Chronic Comment: - Continue home med of microgestin (8) DVT prophylaxis Current Visit: Yes Status: Acute Code(s): [id number] - SNOMED Code(s): 032900155 Comment: - Heparin 5000 SQ Q 8rs
[2018-06-08] MEDS: cefTRIAXone(*) 1 GM in NS 0.9% 50 ML* 50 ML IVPB SCH (14:39)
--- NOTE | 2018-06-09 16:36 | DS ---
CC: Dr. Choudhury; Primary Care Provider DISCHARGE SUMMARY: DATE OF ADMISSION: 06/05/18 DATE OF DISCHARGE: 06/08/18 FINAL DISCHARGE DIAGNOSES: 1. Community-acquired pneumonia. 2. Diabetes. 3. Gastroesophageal reflux disease. 4. Irritable bowel syndrome. 5. Obsessive compulsive disorder. 6. Pulmonary nodule. HOSPITAL COURSE: The patient presented to [facility] as a direct transfer from [facility] on 06/05/18 for higher level of care that did require evaluation by Infectious Diseases and P ulmonology. She presented to [facility] on the night of 06/04/18 with cough for 3 days that failed out patient therapy with 2 separate antibiotics and on admission, she was found to have on her CT scan wh at looked like a bud-tree formation, suggestive of fungal pneumonia, which necessitated the transfer to our facility for ID and pulmonary eval. The patient was seen and assessed on arrival. She was in a very stable condition. She was already on Rocephin and Zithromax on the transferring facility. H ence, she was maintained on the current regimen and record of the CT and chest x-ray were obtained. ID consultation and pulmonary consultation were requested and given the nature of the admission date, unfortunately ID was not available on today; therefore, the patient was maintained on the Rocephin a nd Zithromax with supportive therapy with nebulizer and she was seen and evaluated by ferryboat captain, Dr. Choudhury, who did not think there is any indication of fungal infection that necessitates any inpat ient bronchoscopy. Recommended to continue the current therapy and today. She was seen and evaluated by our infectious diseases specialist, Dr. Vyas, who concurred with the current treatment, and r ecommended to continue her treatment with ceftriaxone and azithromycin and upon discharge to switch h er to oral cephalosporin and azithromycin. The patient was seen and evaluated today and she was deem ed stable for discharge with outlined below discharge medications and a discharge plan. INPATIENT DIAGNOSTIC STUDY: She had a chest x-ray at our facility, it did not reveal any finding con sistent with pneumonia. DIAGNOSTIC LABS: She had a white count of 19,000 on presentation and today 06/08/18 her white count declined to 10.7. She has no sign of fever. She is feeling better and tolerating oxygen well; hence , she was cleared for discharge. RSV influenza A and B were negative. MEDICATIONS: Discharge medications: 1. Vantin 200 mg b.i.d. for 5 days. 2. Azithromycin 250 mg daily for 2 more days. Continue home medications: 1. Wellbutrin 300 mg daily in the morning and 150 at night. 2. Robitussin DM as needed. 3. Ranitidine 150 mg b.i.d. 4. Microgestin 1.5-30 one tab daily. 5. Multivitamin daily. 6. Amitiza 24 mcg twice a day. 7. Lamictal 25 mg twice a day. 8. [place] 5/325 one tab every 6 hours as needed. Home medications: 1. Fluoxetine 20 mg to take a total of 60 mg daily. 2. Diclofenac 75 mg twice a day. 3. Vitamin D 2000 unit daily. 4. Calcium 600 mg twice a day. The patient is to stop her Levaquin as well as ibuprofen. DISCHARGE INSTRUCTIONS: The patient is to remain for 2 more days, may return on 06/11/18. The patient is to follow up with her primary care in 1 to 2 weeks. The patient's referral for Dr. José Choudhury in 4 to 6 weeks for a followup on her pulmonary nodule. PHYSICAL EXAM ON DISCHARGE: Please refer to my progress note done from earlier today in the chart. [id number]/[facility] #: [id number]
== END 2018-06-08 15:15 | disposition home or self-care (01) | DRG 195 ==
LOC: MED 17:10
PROVIDERS: ADMIT Hospitalist; ATTEND Internal Medicine
DX: J18.9 Pneumonia, unspecified organism (principal); E11.9 Type 2 diabetes mellitus without complications; K21.9 Gastro-esophageal reflux disease without esophagitis; K58.9 Irritable bowel syndrome, unspecified; F42.9 Obsessive-compulsive disorder, unspecified; R91.1 Solitary pulmonary nodule; G47.33 Obstructive sleep apnea (adult) (pediatric); R51 Headache; Z79.899 Other long term (current) drug therapy; Z88.8 Allergy status to other drugs, medicaments and biological substances; Z83.3 Family history of diabetes mellitus; Z82.49 Family history of ischemic heart disease and other diseases of the circulatory system
CPT/HCPCS: 36415; 71046; 80048; 83735; 84100; 85025; 87070; 87205; A9270-GY; J0456; J0696; J1644; J2405